=== PATIENT | female | born 1965 | race Caucasian/White ===

== ENCOUNTER 2019-03-21 23:51 | Emergency (ER) | payer MEDICAID ==
[~2019-03-21] VITALS: Ht 165.1 cm; Wt 60.2 kg
--- NOTE | 2019-03-22 00:23 | NUR ---
Pt reports left sided thoracic pain x couple days, worse on inspiration, denies any other s/s
[2019-03-22] MEDS ORDERED: KETOROLAC 30 MG/1 ML ONE (00:47)
[2019-03-22] MEDS ORDERED: KETOROLAC 30 MG/1 ML IM ONE (01:00)
[2019-03-22 01:02] LABS: BASOPHILS # (AUTO) 0.09 x10^3/uL (0-0.1); BASOPHILS % (AUTO) 1 % (0-1); EOSINOPHILS # (AUTO) 0.33 x10^3/uL (0-0.4); EOSINOPHILS % (AUTO) 3 % (1-7); LYMPHOCYTES # (AUTO) 2.78 x10^3/uL (1-3.4); LYMPHOCYTES % (AUTO) 29 % (22-44); MD NO; MEAN CORPUSCULAR HEMOGLOBIN 30.2 pg (27.0-34.8); MEAN CORPUSCULAR VOLUME 91.5 fL (80-100); MONOCYTES # (AUTO) 0.66 x10^3/uL (0.2-0.8); MONOCYTES % (AUTO) 7 % (2-9); NEUTROPHILS # (AUTO) 5.88 x10^3/uL (1.8-6.8); NEUTROPHILS % (AUTO) 60 % (42-75); PLATELET COUNT 251 x10^3/uL (130-400); RED BLOOD COUNT 4.94 x10^6/uL (3.82-5.3); RED CELL DISTRIBUTION WIDTH 13.4 % (9.6-15.2)
--- NOTE | 2019-03-22 01:02 | NUR ---
X ray at bedside.
[2019-03-22 01:08] LABS: ALBUMIN 3.7 g/dL (3.4-5.0); ANION GAP 3 mmol/L (5-15); CALCIUM 8.8 mg/dL (8.5-10.1); CHLORIDE 106 mmol/L (98-107); CREATININE 1.23 mg/dL (0.55-1.02)
[2019-03-22 01:12] LABS: TROPONIN I < 0.015 ng/mL (0.000-0.045)
[2019-03-22 01:56] LABS: MICROSCOPIC NOT IND
[2019-03-22 01:58] LABS: CULTURE INDICATED? NO
--- NOTE | 2019-03-22 02:03 | NUR ---
all labs and urine resulted. chart up for MD to re-eval.
--- NOTE | 2019-03-22 02:23 | NUR ---
ERP at bedside for re-evaluation.
[2019-03-22 02:40] VITALS: BP 139/97
--- NOTE | 2019-03-22 02:40 | NUR ---
patient discharged with instruction. verbalized understanding.
== END 2019-03-22 02:44 | disposition home or self-care (01) ==
LOC: ED 03-22 02:30
DX: R07.89 Other chest pain (principal); N17.9 Acute kidney failure, unspecified; R10.9 Unspecified abdominal pain; Z90.89 Acquired absence of other organs; F17.200 Nicotine dependence, unspecified, uncomplicated
CPT/HCPCS: 36415; 71045; 80048; 81003; 82040; 84484; 85025; 93005; 96372; 99284; J1885